=== PATIENT | male | born 1970 | race Caucasian/White ===

== ENCOUNTER 2017-07-01 20:06 | Emergency (ER) | payer SELFPAY ==
[2017-07-01 20:18] VITALS: BMI 28.5
--- NOTE | 2017-07-01 20:26 | DR.GENAD ---
HPI - PCP Primary Care Physician: NFMegan - HPI Comment HPI Comment: PATIENT ALSO HAVE EXERTIONAL DYSPNEA. CURRENTLY TAKING ALBUTEROL INHALER. TODAY, SYMTOMS GOT WORSE. - Complaint/Symptoms Chief Complaint Doctors Comments: INCREASING SOB AND CHEST TIGHTNESS TIMES 5 DAYS. PROGRESSIVE SOB FOR SEVERAL MONTHS. NO FEVER. Chief Complaint:: PT STATES" I HAVE BEEN HAVING PROBLEMS WITH MY BREATHING FOR A 5 OR 6 MONTHS. IT JUST GOT WORSE IN THE LAST COUPLE DAYS. I GIVE OUT OF AIR QUICK AND IT FEELS LIKE I'M GOING TO PASS OUT. I HAVE TO SIT DOWN BECAUSE I GET OUT OF AIR SO FAST. TIGHTNESS IN THE CENTER OF MY CHEST STARTED YESTERDAY" - Nurses notes reviewed Nurses Notes Review: Yes - Source History Provided: Patient - Mode of Arrival Mode of Arrival: Ambulatory - Timing Onset of Chief Complaint: 06/30/17 Came on: Suddenly - Duration Duration: Constant Duration: Days - Severity Severity: Moderate PMH - PMH Past Medical History: No Past Surgical History: Yes Past Surgical History Comment: NECK RT EAR - Family History History of Family Medical Conditions: Yes Family Medical History: Cancer - Social History Type of Tobacco Use: Cigarettes Does any household member use tobacco: Yes Alcohol Use: None Do you use any recreational Drugs:: No Lives With: Family Lives Where: Home - infectious screening In the last 2 months have you had wt loss of >10#?: NO Have you had fever, night sweats or hemotysis?: No Have you traveled outside the country in the last 6 months?: No Isolation: Standard ROS - Review of Systems Constitutional: No Symptoms Reported Eyes: No Symptoms Reported ENTM: No Symptoms Reported Respiratoy: Non-Productive Cough, Short of Breath, Wheezing. negative: Hemoptysis Cardiovascular: Chest Pain Gastrointestinal/Abdominal: No Symptoms Reported Genitourinary: No Symptoms Reported Neurological: No Symptoms Reported Musculoskeletal: No Symptoms Reported Integumentary: No Symptoms Reported Hematologic/Lymphatic: No Symptoms Reported Endocrine: No Symptoms Reported All Other Systems: Reviewed and Negative PE - Vital Signs Vitals: Temperature 982 F Pulse Rate [Apical] 61 Pulse Rate 52 Respiratory Rate 20 Blood Pressure [Left Arm] 123/67 Blood Pressure 131/69 O2 Sat by Pulse Oximetry 100 - General Limitations: No Limitations General Appearance: Alert - Head Head Exam: Normal Inspection - Eyes Eye exam: Normal Appearance - ENT ENT Exam: Normal External Ear Exam External Ear Exam: Normal External Inspection TM/Canal Exam: Bilateral Normal Mouth Exam: Normal Inspection Throat Exam: Normal Inspection - Neck Neck Exam: Normal Inspection - Chest Chest Inspection: Symmetric Chest Wall Rise - Respiratory Respiratory Exam: Normal Lung Sounds Bilat Respiratory Exam: Bilateral Clear to Auscultation - Abdominal Exam Abdominal Exam: Normal Bowel Sounds, Soft. negative: Tenderness - Extremities Extremities Exam: Normal Inspection - Back Back Exam: Normal Inspection - Neurologic Neurological Exam: Alert, Oriented X3 - Psychiatric Psychiatric Exam: Normal Affect, Normal Mood - Skin Skin Exam: Normal Color MDM - Additional Information Additional Information Obtained From: Family - Differential Diagnosis Differential Diagnosis: COPD, CHF, PNEUMONIA, BRONCHITIS Course - Treatment Treatment: SEE ORDERS. NEB TREATMENT AND IV SOLUMEDROL IN ED. - Reevaluation 1st: Improved - Education/Counseling Education/Counseling: Patient, Family, Education Educated On: Treatment, Diagnosis, Needs for Follow Up ROR - Labs Reviewed Laboratory Results Reviewed?: Yes Result Diagrams: 07/01/17 20:27 07/01/17 20:27 Laboratory: WBC 8.9 X10^3/uL (3.6-10.0) 07/01/17 20:27 RBC 4.37 X10^6/uL (4.7-6.0) L 07/01/17 20:27 Hgb 14.2 g/dL (13.5-18.0) 07/01/17 20:27 Hct 40.8 % (42.0-54.0) L 07/01/17 20:27 MCV 93.3 fL (80.0-100.0) 07/01/17 20: MCH 32.4 pg (27.0-34.0) 07/01/17 20:27 MCHC 34.8 g/dL (33.0-35.0) 07/01/17 20:27 RDW 13.0 % (11.6-16.5) 07/01/17 20: Plt Count 210 X10^3/uL (150.0-450.0) 07/01/17 20:27 MPV 9.2 fL (7.4-11.0) 07/01/17 20:27 Neut % 45.0 % (42.0-75.0) 07/01/17 20: Lymph % 38.8 % (21.0-51.0) 07/01/17 20:27 [place] % 9.7 % (0.0-13.0) 07/01/17 20: Eos % 5.8 % (0.9-2.9) H 07/01/17 20:27 Baso % 0.7 % (0.2-1.0) 07/01/17 20:27 Neut # 4.0 x10^3/uL (2.2-4.8) 07/01/17 20: Lymph # 3.5 X10^3/uL (1.3-2.9) H 07/01/17 20: [place] # 0.9 x10^3/uL (0.3-0.8) H 07/01/17 20: Eos # 0.5 x10^3/uL (0.0-0.2) H 07/01/17 20: Baso # 0.1 X10^3/uL (0.0-0.1) 07/01/17 20: Absolute Nucleated RBC 0.0 /100WBC 07/01/17 20:27 Sample Site R rad 07/01/17 20:30 ABG pH 7.440 (7.35-7.45) 07/01/17 20:30 ABG pCO2 43.0 mmHg (35.0-45.0) 07/01/17 20:30 ABG pO2 86.0 mmHg (80.0-100.0) 07/01/17 20:30 ABG HCO3 29.2 mmol/L (22-26) H 07/01/17 20:30 ABG O2 Saturation 97.0 % (90-100) 07/01/17 20:30 ABG Base Excess 4.5 mmol/L (-2.0-2.0) H 07/01/17 20:30 Tong Test Pos 07/01/17 20:30 A-a Gradient 10.0 mmHg 07/01/17 20:30 FiO2 21.000 07/01/17 20:30 Blood Gas Comments Deanna well, afh 07/01/17 20:30 Sodium 142 mmol/L (136-145) 07/01/17 20:27 Corrected Sodium TNP 07/01/17 20:27 Potassium 4.4 mmol/L (3.5-5.1) 07/01/17 20:27 Chloride 106 mmol/L (98-107) 07/01/17 20: Carbon Dioxide 26.4 mmol/L (21-32) 07/01/17 20: BUN 15 mg/dL (7-18) 07/01/17 20: Creatinine 1.04 mg/dL (0.70-1.30) 07/01/17 20:27 Est GFR (MDRD) Af Amer > 60 (>60) 07/01/17 20: Est GFR (MDRD) Non-Af > 60 (>60) 07/01/17 20: Glucose 95 mg/dL (65-99) 07/01/17 20: Calcium 9.1 mg/dL (8.5-10.1) 07/01/17: Corrected Calcium TNP 07/01/17 20: Total Bilirubin 0.30 mg/dL (0.2-1.0) 07/01/17 20: AST 31 Units/L (15-37) 07/01/17 20: ALT 61 Units/L (12-78) 07/01/17 20: Alkaline Phosphatase 77 Units/L (46-116) 07/01/17 20: Creatine Kinase 245 Units/L (39-308) 07/01/17 20: CK-MB (CK-2) 2.3 ng/mL (0-4.0) 07/01/17 20: CK/CKMB % Calc 0.9 % (<4) 07/01/17 20: Troponin I < 0.02 ng/mL (0-1.5) 07/01/17 20: B-Natriuretic Peptide 47.1 pg/mL (0-79) 07/01/17 20: Total Protein 6.5 g/dL (6.4-8.2) 07/01/17 20: Albumin 3.6 g/dL (3.4-5.0) 07/01/17 20: Globulin 2.9 g/dL (2.5-4.5) 07/01/17 20: Albumin/Globulin Ratio 1.2 Ratio (1.1-2.1) 07/01/17 20:27 Specimen Type Clean catch urine 07/01/17 21:40 Urine Color Yellow (YELLOW) 07/01/17 21:40 Urine Appearance Cloudy (CLEAR) 07/01/17 21:40 Urine pH 7.0 (5.0 - 8.0) 07/01/17 21:40 Ur Specific [place] 1.015 (1.000-1.030) 07/01/17 21:40 Urine Protein Negative (NEGATIVE) 07/01/17 21:40 Urine Glucose (UA) Negative (NEGATIVE) 07/01/17 21:40 Urine Ketones Negative (NEGATIVE) 07/01/17 21:40 Urine Occult Blood Negative (NEGATIVE) 07/01/17 21:40 Urine Nitrite Negative (NEGATIVE) 07/01/17 21:40 Urine Bilirubin Negative (NEGATIVE) 07/01/17 21:40 Urine Urobilinogen Normal (NORMAL) 07/01/17 21:40 Ur Leukocyte Esterase Negative (NEGATIVE) 07/01/17 21:40 Urine RBC None seen /HPF (NEGATIVE) 07/01/17 21:40 Urine WBC 0-3 /HPF (NEGATIVE) 07/01/17 21:40 Ur Squamous Epith Cells Rare /HPF (NEGATIVE) 07/01/17 21:40 Amorphous Sediment 1+ /HPF (NEGATIVE) 07/01/17 21:40 Urine Bacteria 2+ /HPF (NEGATIVE) 07/01/17 21:40 Ur Culture Indicated? Yes/culture set up 07/01/17 21:40 - XRAY XRAY Interpreted by: Radiologist XRAY Findings: REPORT DISCUSS WITH PATIENT AND FAMILY. - EKG Rhythm: NSR (EKG NOTED.) - Diagnosis Discharge Problem: Shortness of breath Acute bronchitis Qualifiers: Bronchitis organism: other organism Qualified Code(s): J20.8 - Acute bronchitis due to other specified organisms - Discharge Plan Disposition: 01 HOME, SELF-CARE Condition: Stable Prescriptions: Doxycycline Hyclate 100 mg PO BID #20 tablet. Methylprednisolone Dosepak 4Mg [MEDROL DOSEPAK (4 mg tab x 21)] 1 guerda PO ONCE # 1 guerda - Follow ups/Referrals Follow ups/Referrals: NFD,None [Primary Care Provider] - 3 days - Instructions Instructions: Acute Bronchitis, [id number] Additional Instructions: RETURN TO ED IF WORSE.
[2017-07-01] MEDS ORDERED: DUONEB 0.5 MG/3 MG NEB ONE (20:27)
[2017-07-01] MEDS ORDERED: SOLU-Medrol 125 MG VIAL IVP ONE (20:27)
[2017-07-01] MEDS ORDERED: DUONEB 0.5 MG/3 MG ONE (20:28)
[2017-07-01] MEDS ORDERED: SOLU-Medrol 125 MG VIAL ONE (20:28)
[2017-07-01 20:38] LABS: BASOPHILS # (AUTO) 0.1 X10^3/uL (0.0-0.1); BASOPHILS % (AUTO) 0.7 % (0.2-1.0); EOSINOPHILS # (AUTO) 0.5 x10^3/uL (0.0-0.2); EOSINOPHILS % (AUTO) 5.8 % (0.9-2.9); HEMATOCRIT 40.8 % (42.0-54.0); HEMOGLOBIN 14.2 g/dL (13.5-18.0); LYMPHOCYTES # (AUTO) 3.5 X10^3/uL (1.3-2.9); LYMPHOCYTES % (AUTO) 38.8 % (21.0-51.0); MEAN CORPUSCULAR HEMOGLOBIN 32.4 pg (27.0-34.0); MEAN CORPUSCULAR HGB CONC 34.8 g/dL (33.0-35.0); MEAN CORPUSCULAR VOLUME 93.3 fL (80.0-100.0); MEAN PLATELET VOLUME 9.2 fL (7.4-11.0); MONOCYTES # (AUTO) 0.9 x10^3/uL (0.3-0.8); MONOCYTES % (AUTO) 9.7 % (0.0-13.0); PLATELET COUNT 210 X10^3/uL (150.0-450.0); RED BLOOD COUNT 4.37 X10^6/uL (4.7-6.0); WHITE BLOOD COUNT 8.9 X10^3/uL (3.6-10.0)
[2017-07-01 20:54] LABS: ABG ALLEN TEST POS; ABG BASE EXCESS 4.5 mmol/L (-2.0-2.0); ABG HCO3 29.2 mmol/L (22-26)
[2017-07-01 20:58] LABS: BLOOD UREA NITROGEN 15 mg/dL (7-18); CALCIUM 9.1 mg/dL (8.5-10.1); CARBON DIOXIDE 26.4 mmol/L (21-32); CHLORIDE 106 mmol/L (98-107); CREATININE 1.04 mg/dL (0.70-1.30); SODIUM 142 mmol/L (136-145); TROPONIN I < 0.02 ng/mL (0-1.5); eGFR BLACK RACES > 60 (>60); eGFR NON BLACK RACES > 60 (>60)
[2017-07-01 21:02] LABS: ALANINE AMINOTRANSFERASE 61 Units/L (12-78); ALBUMIN 3.6 g/dL (3.4-5.0); ALKALINE PHOSPHATASE 77 Units/L (46-116); ASPARTATE AMINO TRANSFERASE 31 Units/L (15-37); B-TYPE NATRIURETIC PEPTIDE 47.1 pg/mL (0-79); CKMB % 0.9 % (<4); CREATINE KINASE 245 Units/L (39-308); CREATINE KINASE MB 2.3 ng/mL (0-4.0); TOTAL PROTEIN 6.5 g/dL (6.4-8.2)
--- NOTE | 2017-07-01 21:19 | RAD ---
Chest AP portable Indication: Difficulty breathing. Findings: There is no pneumothorax or effusion. There is no consolidation. Heart size is normal. Impression: No acute chest process. No prior studies currently available. Reported By:
[2017-07-01 21:51] LABS: BILIRUBIN,URINE NEGATIVE (NEGATIVE); BLOOD/HEMOGLOBIN,URINE NEGATIVE (NEGATIVE); GLUCOSE, URINE NEGATIVE (NEGATIVE); KETONES,URINE NEGATIVE (NEGATIVE); LEUKOCYTE ESTERASE ,URINE NEGATIVE (NEGATIVE); NITRITES,URINE NEGATIVE (NEGATIVE); PROTEIN,URINE NEGATIVE (NEGATIVE); UROBILINOGEN,URINE NORMAL (NORMAL)
[2017-07-01 21:54] LABS: APPEARANCE,URINE CLOUDY (CLEAR); COLOR,URINE YELLOW (YELLOW)
[2017-07-01 21:55] LABS: AMORPHOUS SEDIMENT,UR 1+ /HPF (NEGATIVE); BACTERIA,URINE 2+ /HPF (NEGATIVE); RBC,URINE NONE SEEN /HPF (NEGATIVE); SQUAMOUS EPITHELIAL CELL,UR RARE /HPF (NEGATIVE)
[2017-07-01] MEDS ORDERED: VIBRAMYCIN PO ONE ×2 (22:28→22:40)
[2017-07-01 22:40] VITALS: BP 123/67
== END 2017-07-01 22:40 | disposition home or self-care (01) ==
LOC: ER 20:06
DX: J20.8 Acute bronchitis due to other specified organisms (principal); R06.02 Shortness of breath
CPT/HCPCS: 36415; 36600; 71010; 80053; 81001; 82550; 82553; 82803; 83880; 84484; 85025; 87086; 93005; 93010; 94640; 96365; 96374; 96375; 99283; A4222; J2930; J7620

== ENCOUNTER 2017-12-31 09:47 | Emergency (ER) | payer SELFPAY ==
[2017-12-31 09:51] VITALS: BP 136/60; BMI 30.4
--- NOTE | 2017-12-31 10:17 | DR.GENAD ---
HPI - PCP Primary Care Physician: KARON - HPI Comment HPI Comment: HISTORY BELOW. - Complaint/Symptoms Chief Complaint Doctors Comments: RT GROIN PAIN TIMES SINCE LAST NIGHT WHEN WAS GETTING UP FROM HIS RECLINER. PAIN RADIATED RT SCROTUM AND RT TESTICLE IS PAINFUL. NO FEVER. NO DYSURIA. PAIN IS GETTING SEVERE. COUGHING MAKE PAIN WORSE. BELIEVE RT GROIN IS MORE PROMINENT THAN LEFT GROIN. Chief Complaint:: PT. C/O RIGHT GROIN PAIN. PT. STATES "I THINK I MAY HAVE A HERNIA." PT. STATES HE WAS GETTING UP FROM HIS RECLINER LAST NIGHT AND HAD PAIN. PT. STATES THE PAIN WORSENS WHEN HE COUGHS. 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: NO Have you had fever, night sweats or hemotysis?: No Have you traveled outside the country in the last 6 months?: No Isolation: Standard ROS - Review of Systems Constitutional: No Symptoms Reported Eyes: No Symptoms Reported ENTM: No Symptoms Reported Respiratoy: No Symptoms Reported Cardiovascular: No Symptoms Reported Gastrointestinal/Abdominal: No Symptoms Reported Genitourinary: Other (RT GROIN PAIN.) Neurological: No Symptoms Reported Musculoskeletal: No Symptoms Reported Integumentary: No Symptoms Reported Hematologic/Lymphatic: No Symptoms Reported Endocrine: No Symptoms Reported All Other Systems: Reviewed and Negative PE - Vital Signs Vitals: Temperature 97.7 F Pulse Rate 84 Respiratory Rate 18 Blood Pressure [Left Arm] 123/67 Blood Pressure 136/60 O2 Sat by Pulse Oximetry 99 - General Limitations: No Limitations General Appearance: Alert - Head Head Exam: Normal Inspection - Eyes Eye exam: Normal Appearance - ENT ENT Exam: Normal External Ear Exam TM/Canal Exam: Bilateral Normal Nose Exam: Normal Nose Exam Mouth Exam: Normal Inspection Throat Exam: Normal Inspection - Neck Neck Exam: Trachea Midline - Chest Chest Inspection: Symmetric Chest Wall Rise - Respiratory Respiratory Exam: Normal Lung Sounds Bilat Respiratory Exam: Bilateral Clear to Auscultation - Cardiovascular Cardiovascular Exam: Regular Rate, Normal Rhythm, Normal Heart Sounds - Abdominal Exam Abdominal Exam: Normal Bowel Sounds, Soft, Tenderness (RT GROIN TENDERNESS) Abdominal Tenderness: Other (RT GROIN TENDERNESS.) - Extremities Extremities Exam: Normal Inspection - Back Back Exam: Normal Inspection - Neurologic Neurological Exam: Alert, Oriented X3 - Psychiatric Psychiatric Exam: Normal Affect, Normal Mood - Skin Skin Exam: Normal Color MDM - Additional Information Additional Information Obtained From: Old Records (GROIN PAIN.) - Differential Diagnosis Differential Diagnosis: RIGHT GROIN PAIN, KIDNEY STONE, TORSION, UTI, EPIDYDIMITIS, ORCHITIS. Course - Treatment Treatment: SEE ORDERS. IM PAIN MED IN ED. - Reevaluation 1st: Improved (PAIN IMPROVED) - Education/Counseling Education/Counseling: Patient, Family, Education Educated On: Treatment, Diagnosis, Needs for Follow Up ROR - Labs Reviewed Laboratory Results Reviewed?: Yes Result Diagrams: 12/31/17 10:50 12/31/17 10:50 Laboratory: WBC 9.6 X10^3/uL (3.6-10.0) 12/31/17 10:50 RBC 4.84 X10^6/uL (4.7-6.0) 12/31/17 10:50 Hgb 15.6 g/dL (13.5-18.0) 12/31/17 10:50 Hct 45.1 % (42.0-54.0) 12/31/17 10:50 MCV 93.2 fL (80.0-100.0) 12/31/17 10:50 MCH 32.3 pg (27.0-34.0) 12/31/17 10:50 MCHC 34.7 g/dL (33.0-35.0) 12/31/17 10:50 RDW 13.5 % (11.6-16.5) 12/31/17 10:50 Plt Count 282 X10^3/uL (150.0-450.0) 12/31/17 10:50 MPV 9.3 fL (7.4-11.0) 12/31/17 10:50 Neut % (Auto) 61.6 % (42.0-75.0) 12/31/17 10:50 Lymph % (Auto) 24.9 % (21.0-51.0) 12/31/17 10:50 [place] % (Auto) 10.0 % (0.0-13.0) 12/31/17 10:50 Eos % (Auto) 2.6 % (0.9-2.9) 12/31/17 10:50 Baso % (Auto) 0.9 % (0.2-1.0) 12/31/17 10:50 Neut # (Auto) 5.9 x10^3/uL (2.2-4.8) H 12/31/17 10:50 Lymph # (Auto) 2.4 X10^3/uL (1.3-2.9) 12/31/17 10:50 [place] # (Auto) 1.0 x10^3/uL (0.3-0.8) H 12/31/17 10:50 Eos # (Auto) 0.3 x10^3/uL (0.0-0.2) H 12/31/17 10:50 Baso # (Auto) 0.1 X10^3/uL (0.0-0.1) 12/31/17 10:50 Absolute Nucleated RBC 0.0 /100WBC 12/31/17 10:50 Sodium 140 mmol/L (136-145) 12/31/17 10:50 Corrected Sodium 141 mmol/L (136-145) 12/31/17 10:50 Potassium 4.6 mmol/L (3.5-5.1) 12/31/17 10:50 Chloride 104 mmol/L (98-107) 12/31/17 10:50 Carbon Dioxide 27.3 mmol/L (21-32) 12/31/17 10:50 BUN 16 mg/dL (7-18) 12/31/17 10:50 Creatinine 1.01 mg/dL (0.70-1.30) 12/31/17 10:50 Est GFR (MDRD) Af Amer > 60 (>60) 12/31/17 10:50 Est GFR (MDRD) Non-Af > 60 (>60) 12/31/17 10:50 Glucose 123 mg/dL (65-99) H 12/31/17 10:50 Calcium 8.9 mg/dL (8.5-10.1) 12/31/17 10:50 Corrected Calcium TNP 12/31/17 10:50 Total Bilirubin 0.50 mg/dL (0.2-1.0) 12/31/17 10:50 AST 40 Units/L (15-37) H 12/31/17 10:50 ALT 79 Units/L (12-78) H 12/31/17 10:50 Alkaline Phosphatase 86 Units/L (46-116) 12/31/17 10:50 Total Protein 7.6 g/dL (6.4-8.2) 12/31/17 10:50 Albumin 4.1 g/dL (3.4-5.0) 12/31/17 10:50 Globulin 3.5 g/dL (2.5-4.5) 12/31/17 10:50 Albumin/Globulin Ratio 1.2 Ratio (1.1-2.1) 12/31/17 10:50 Specimen Type Clean catch urine 12/31/17 10:11 Urine Color Yellow (YELLOW) 12/31/17 10:11 Urine Appearance Clear (CLEAR) 12/31/17 10:11 Urine pH 7.0 (5.0 - 8.0) 12/31/17 10:11 Ur Specific [place] 1.010 (1.000-1.030) 12/31/17 10:11 Urine Protein Negative (NEGATIVE) 12/31/17 10:11 Urine Glucose (UA) Negative (NEGATIVE) 12/31/17 10:11 Urine Ketones Negative (NEGATIVE) 12/31/17 10:11 Urine Occult Blood Negative (NEGATIVE) 12/31/17 10:11 Urine Nitrite Negative (NEGATIVE) 12/31/17 10:11 Urine Bilirubin Negative (NEGATIVE) 12/31/17 10:11 Urine Urobilinogen Normal (NORMAL) 12/31/17 10:11 Ur Leukocyte Esterase Negative (NEGATIVE) 12/31/17 10:11 - XRAY XRAY Interpreted by: Radiologist XRAY Findings: REPORT DISCUSS WITH PATIENT AND HIS FAMILY. - Diagnosis Discharge Problem: Right groin pain - Discharge Plan Disposition: HOME, SELF-CARE Condition: Stable Prescriptions: Ibuprofen [MOTRIN TAB 800 MG *] 800 mg PO BID PRN #60 tab PRN Reason: Pain/Inflammation Ranitidine HCl [ZANTAC TAB 150 MG *] 150 mg PO BID #50 tab - Follow ups/Referrals Follow ups/Referrals: NFD,None [Primary Care Provider] - 3 days MECHELLE THOMAS [STAFF PHYSICIAN] - 3 days - Instructions Instructions: Abdominal Pain, Adult, [id number] Additional Instructions: RETURN TO ED IF WORSE. YOU HAVE PAIN IN THE RIGHT GROIN AREA. CAUSE NOT YET ESTABLISH. YOU SHOULD FOLLOW UP WITH OUR [employer] YOU DO NOT HAVE A PCP.
[2017-12-31 10:19] LABS: BILIRUBIN,URINE NEGATIVE (NEGATIVE); BLOOD/HEMOGLOBIN,URINE NEGATIVE (NEGATIVE); GLUCOSE, URINE NEGATIVE (NEGATIVE); KETONES,URINE NEGATIVE (NEGATIVE); LEUKOCYTE ESTERASE ,URINE NEGATIVE (NEGATIVE); NITRITES,URINE NEGATIVE (NEGATIVE); PROTEIN,URINE NEGATIVE (NEGATIVE); UROBILINOGEN,URINE NORMAL (NORMAL)
--- NOTE | 2017-12-31 11:04 | CT ---
HISTORY: Right groin pain Study: CT abdomen pelvis without contrast Comparison: None Technique: Axial noncontrast images with coronal and sagittal reformats. Dose reduction procedures we re used with mA/kv adjusted for body size. The examination is limited due to the lack of intravenous and oral contrast. The examination was performed in this manner at the discretion of the ordering car grzegorz and without my prior knowledge. Findings: The lung bases are clear. The liver, spleen, adrenal glands, and pancreas are within normal limits to the limitations of an unenhanced examination. No opaque stones are visible within the gallbladder. T he kidneys are unobstructed . There is a 1 mm nonobstructing right lower pole renal calculus present. No definite left renal calculi are identified. No ureteral calculi are identified. The appendix is n ormal. No significant intraperitoneal or retroperitoneal adenopathy is identified. There are no findi ngs suggest of diverticulitis or colitis. Examination of the pelvis demonstrated no evidence for pelv ic masses, pelvic fluid, or pelvic lymphadenopathy. No bladder abnormality is identified. There is no evidence for inguinal or femoral hernia. No lytic or blastic skeletal lesions are identified. IMPRESSION: No evidence for obstructing ureteral calculi 1 mm nonobstructing right renal calculus No evidence for visible inguinal or femoral hernia No acute findings to the limitations of an examination performed without intravenous and without oral contrast. Reported By:
[2017-12-31 11:06] LABS: BASOPHILS # (AUTO) 0.1 X10^3/uL (0.0-0.1); BASOPHILS % (AUTO) 0.9 % (0.2-1.0); EOSINOPHILS # (AUTO) 0.3 x10^3/uL (0.0-0.2); EOSINOPHILS % (AUTO) 2.6 % (0.9-2.9); HEMATOCRIT 45.1 % (42.0-54.0); HEMOGLOBIN 15.6 g/dL (13.5-18.0); LYMPHOCYTES # (AUTO) 2.4 X10^3/uL (1.3-2.9); LYMPHOCYTES % (AUTO) 24.9 % (21.0-51.0); MEAN CORPUSCULAR HEMOGLOBIN 32.3 pg (27.0-34.0); MEAN CORPUSCULAR HGB CONC 34.7 g/dL (33.0-35.0); MEAN CORPUSCULAR VOLUME 93.2 fL (80.0-100.0); MEAN PLATELET VOLUME 9.3 fL (7.4-11.0); NEUTROPHILS # (AUTO) 5.9 x10^3/uL (2.2-4.8); NEUTROPHILS % (AUTO) 61.6 % (42.0-75.0); PLATELET COUNT 282 X10^3/uL (150.0-450.0); RED BLOOD COUNT 4.84 X10^6/uL (4.7-6.0); RED CELL DISTRIBUTION WIDTH 13.5 % (11.6-16.5); WHITE BLOOD COUNT 9.6 X10^3/uL (3.6-10.0)
[2017-12-31 11:14] LABS: APPEARANCE,URINE CLEAR (CLEAR); COLOR,URINE YELLOW (YELLOW)
[2017-12-31] MEDS ORDERED: TORADOL 60 MG VIAL ONE (11:16)
[2017-12-31] MEDS ORDERED: TORADOL 60 MG VIAL IM ONE (11:16)
[2017-12-31 11:22] LABS: ALANINE AMINOTRANSFERASE 79 Units/L (12-78); ALBUMIN 4.1 g/dL (3.4-5.0); ALKALINE PHOSPHATASE 86 Units/L (46-116); ASPARTATE AMINO TRANSFERASE 40 Units/L (15-37); BLOOD UREA NITROGEN 16 mg/dL (7-18); CALCIUM 8.9 mg/dL (8.5-10.1); CARBON DIOXIDE 27.3 mmol/L (21-32); CHLORIDE 104 mmol/L (98-107); COR NA(FOR HYPERGLY) 141 mmol/L (136-145); CREATININE 1.01 mg/dL (0.70-1.30); SODIUM 140 mmol/L (136-145); TOTAL PROTEIN 7.6 g/dL (6.4-8.2); eGFR BLACK RACES > 60 (>60); eGFR NON BLACK RACES > 60 (>60)
--- NOTE | 2017-12-31 12:34 | US ---
HISTORY: Right groin pain Study: Testicular sonogram Comparison: CT abdomen pelvis same date Technique: Multiple grayscale sonographic images were obtained. Findings: The right testicle measured 3.7 x 1.7 x 3.2 cm. No intratesticular masses are identified. The epididy mis was normal. Tiny benign epididymal cysts are incidentally noted. There is a small hydrocele prese nt. There is normal blood flow to the right testicle and right epididymis. Tubular structures posteri or to the testicle represent either spermatocele or varicocele. The left testicle measured 3.8 x 2 x 3 cm. No intratesticular masses were identified. The epididymis was normal. There is normal blood kami w to the testicle. There is a small complex hydrocele present. There is a varicocele present. IMPRESSION: No evidence for testicular torsion, epididymitis or epididymo-orchitis Probable bilateral varicoceles Small complex hydroceles bilaterally. Reported By:
== END 2017-12-31 12:45 | disposition home or self-care (01) ==
LOC: ER 10:03
DX: R10.84 Generalized abdominal pain (principal)
CPT/HCPCS: 36415; 74176; 76870; 80053; 81003; 85025; 96372; 99283; 99285; J1885